=== PATIENT | female | born 1990 | race Caucasian/White ===

== ENCOUNTER → 2021-06-05 | Day surgery (SDC) | payer OTHER ==
[~2021-06-05] VITALS: Ht 167.6 cm; Wt 78.0 kg
[~2021-06-05] MED LIST: BUSPAR5 MG PO; LEXAPRO20 MG PO; PRENATAL FORMU1 EACH PO
[2021-06-05 09:35] LABS: HCG (URINE) SCREEN NEGATIVE (NEGATIVE)
== END | disposition home or self-care (01) ==
LOC: FAS 09:20
PROVIDERS: Anesthesiology
DX: S93.412A Sprain of calcaneofibular ligament of left ankle, initial encounter (principal); S93.492A Sprain of other ligament of left ankle, initial encounter; M25.372 Other instability, left ankle
CPT/HCPCS: 84703; J0690; J1100; J2250; J2405; J2704; J2795; J3010; J7120